=== PATIENT | female | born 1990 | race Caucasian/White ===

== ENCOUNTER → 2018-12-31 | Outpatient (CLI) | payer OTHER | END | disposition home or self-care (01) | LOC: US 11:21 | DX: Z34.01 Encounter for supervision of normal first pregnancy, first trimester (principal); Z3A.12 12 weeks gestation of pregnancy ==

== ENCOUNTER 2020-12-28 16:39 | Emergency (ER) | payer OTHER ==
[~2020-12-28] VITALS: Ht 154.9 cm; Wt 106.6 kg
[2020-12-28 19:22] LABS: BASO % 0.3 % (0.0-1.0); EOS # 0.1 10*3/uL (0.0-0.4); EOS % 0.8 % (1.0-4.0); HEMATOCRIT 33.9 % (37.0-47.0); LYMPH % 25.4 % (27.0-41.0); MEAN CELL VOLUME 84.3 fl (81.0-99.0); MEAN CORPUSCULAR HGB 28.6 pg (27.0-31.0); MEAN CORPUSCULAR HGB CONC 33.9 g/dl (33.0-37.0); MEAN PLATELET VOLUME 10.5 fl (9.6-12.3); MONO # 0.6 10*3/uL (0.1-1.0); MONO % 4.7 % (3.0-9.0); NEUT # 8.2 10*3/uL (2.3-7.9); NEUT % 68.5 % (47.0-73.0); PLATELET COUNT AUTOMATED 241 10*3/uL (130-400); RED BLOOD COUNT 4.02 10*6/uL (4.10-5.10); RED CELL DISTRI WIDTH 13.2 % (0-14.5)
[2020-12-28 19:38] LABS: ALBUMIN 2.9 gm/dl (3.1-4.5); ALKALINE PHOSPHATASE 53 U/L (45-117); BUN 6 mg/dl (7-24); CHLORIDE 105 mmol/L (98-107); LIPASE 106 U/L (73-393); POTASSIUM 3.5 mmol/L (3.5-5.1); SGOT/AST 10 IU/L (3-35); SGPT/ALT 15 U/L (12-78); SODIUM 137 mmol/L (136-145); TOTAL PROTEIN 7.4 gm/dL (6.4-8.2)
[2020-12-28 19:48] LABS: BILIRUBIN Negative (Negative); BLOOD Negative (Negative); CLARITY Clear (Clear); COLOR Yellow (Yellow); GLUCOSE Negative (Negative); KETONE Negative (Negative); LEUKO ESTERASE Negative (Negative); NITRITE Negative (Negative); PH 6.5 (4.5-8.0); SPECIFIC GRAVITY 1.015 (1.001-1.030)
[2020-12-28 20:01] LABS: BACTERIA 1+
[2020-12-28] MEDS ORDERED: CEPHALEXIN500 M1 PO (20:36)
== END 2020-12-28 21:56 | disposition home or self-care (01) ==
LOC: ED 16:39
PROVIDERS: Physician Assistant
DX: O23.92 Unspecified genitourinary tract infection in pregnancy, second trimester (principal); B96.89 Other specified bacterial agents as the cause of diseases classified elsewhere; Z3A.16 16 weeks gestation of pregnancy

== ENCOUNTER 2023-02-08 07:54 | Emergency (ER) | payer OTHER ==
[~2023-02-08] VITALS: Ht 165.1 cm; Wt 90.7 kg
[~2023-02-08 07:54] MED LIST: CEPHALEXIN500 M1 PO
[2023-02-08] MEDS ORDERED: AVPAK AZITHROM250 M1 PO ×2 (09:17→09:40)
[2023-02-08] MEDS ORDERED: IBU800 M1 PO (09:17)
[2023-02-08] MEDS ORDERED: REGLAN10 M1 PO ×2 (09:17→09:40)
[2023-02-08] MEDS ORDERED: IBU800 M2 PO (09:40)
== END 2023-02-08 09:32 | disposition home or self-care (01) ==
LOC: ED 07:54
DX: J18.9 Pneumonia, unspecified organism (principal); M54.2 Cervicalgia; R51.9 Headache, unspecified; Z20.822 Contact with and (suspected) exposure to COVID-19

== ENCOUNTER → 2025-03-31 | Outpatient (CLI) | payer BC ==
[~2025-03-31] MED LIST changes: +AVPAK AZITHROM250 M1 PO; +IBU800 M1 PO; +IBU800 M2 PO; +REGLAN10 M1 PO
== END | disposition home or self-care (01) ==
LOC: US 12:51
PROVIDERS: ATTEND Obstetrics & Gynecology
DX: O20.8 Other hemorrhage in early pregnancy (principal); Z3A.01 Less than 8 weeks gestation of pregnancy

== ENCOUNTER → 2025-04-04 | Outpatient (CLI) | payer BC ==
[~2025-04-04] MED LIST changes: +Rho(D) Immune Globulin 300 MCG/2 ML SYR IM ONE
[2025-04-04 10:12] VITALS: BP 131/70
== END | disposition home or self-care (01) ==
LOC: INJECTION 04-03 10:00
PROVIDERS: ATTEND Obstetrics & Gynecology
DX: O26.891 Other specified pregnancy related conditions, first trimester (principal); Z67.41 Type O blood, Rh negative; Z3A.12 12 weeks gestation of pregnancy